=== PATIENT | female | born 1970 | race Caucasian/White ===

== ENCOUNTER 2021-11-21 09:21 | Inpatient (IN) | payer OTHER ==
[~2021-11-21] VITALS: Ht 157.5 cm; Wt 82.6 kg
[~2021-11-21 09:21] MED LIST: ASPIRIN EC81 MG PO; ATORVASTATIN CA20 MG PO; CARVEDILOL3.125 MG PO; HEMOCYTE324 MG PO; LASIX20 MG PO; LISINOPRIL10 MG PO; PROTONIX40 MG PO
[2021-11-21 10:47] LABS: HEMOGLOBIN 11.3 gm/dl (12.3-15.3); RED BLOOD COUNT 5.05 M/UL (4.00-5.10); WHITE BLOOD COUNT 9.8 K/UL (4.5-11.0)
[2021-11-21 11:38] LABS: BUN/CREATININE RATIO 17 (0-10)
[2021-11-21] MEDS ORDERED: ASPIRIN EC81 MG PO (17:57)
[2021-11-21] MEDS ORDERED: ATORVASTATIN CA40 MG PO ×2 (17:58→17:59)
[2021-11-21] MEDS ORDERED: BUSPIRONE HCL7.5 MG PO (18:02)
[2021-11-21] MEDS ORDERED: CARVEDILOL6.25 MG PO (18:03)
[2021-11-21] MEDS ORDERED: FEROSUL325 MG PO (18:04)
[2021-11-21] MEDS ORDERED: FUROSEMIDE20 MG PO (18:05)
[2021-11-21] MEDS ORDERED: HYDRALAZINE HCL10 MG PO (18:07)
[2021-11-21] MEDS ORDERED: ISOSORBIDE MONO30 MG PO (18:08)
[2021-11-21] MEDS ORDERED: LISINOPRIL20 MG PO (18:11)
[2021-11-21] MEDS ORDERED: PROTONIX40 MG PO (18:12)
[2021-11-21] MEDS ORDERED: IBU800 MG PO (18:14)
[2021-11-21] MEDS ORDERED: PROZAC40 MG PO (18:14)
[2021-11-21 19:50] LABS: HEMOGLOBIN 10.7 gm/dl (12.3-15.3); RED BLOOD COUNT 4.77 M/UL (4.00-5.10); WHITE BLOOD COUNT 9.4 K/UL (4.5-11.0)
[2021-11-21 20:13] LABS: BUN/CREATININE RATIO 17 (0-10)
[2021-11-22 05:24] LABS: BUN/CREATININE RATIO 17 (0-10)
[2021-11-22 05:25] LABS: HEMOGLOBIN 11.3 gm/dl (12.3-15.3); RED BLOOD COUNT 5.05 M/UL (4.00-5.10); WHITE BLOOD COUNT 10.3 K/UL (4.5-11.0)
[2021-11-23] MEDS ORDERED: LISINOPRIL20 MG PO (11:20)
[2021-11-23] MEDS ORDERED: BRILINTA 90 MG90 MG PO (11:20)
[2021-11-23] MEDS ORDERED: ATORVASTATIN CA80 MG PO (11:20)
[2021-11-23] MEDS ORDERED: NORVASC5 MG PO (11:20)
[2021-11-23] MEDS ORDERED: HYGROTON TAB 2525 MG PO (11:20)
== END 2021-11-23 14:27 | disposition home or self-care (01) | DRG 247 ==
LOC: ER1 09:21 → CDU 10:20 → CCU 10:20
PROVIDERS: ADMIT Internal Medicine Cardiovascular Disease
PROC: 027034Z Dilation of Coronary Artery, One Artery with Drug-eluting Intraluminal Device, Percutaneous Approach (ICD-10-PCS; 2021-11-21)
PROC: 4A023N7 Measurement of Cardiac Sampling and Pressure, Left Heart, Percutaneous Approach (ICD-10-PCS; 2021-11-21)
PROC: B2111ZZ Fluoroscopy of Multiple Coronary Arteries using Low Osmolar Contrast (ICD-10-PCS; 2021-11-21)
PROC: B240ZZ3 Ultrasonography of Single Coronary Artery, Intravascular (ICD-10-PCS; 2021-11-21)
PROC: B24BZZZ Ultrasonography of Heart with Aorta (ICD-10-PCS; principal; 2021-11-22)
DX: I21.19 ST elevation (STEMI) myocardial infarction involving other coronary artery of inferior wall (principal); E78.5 Hyperlipidemia, unspecified; Z20.822 Contact with and (suspected) exposure to COVID-19; F17.200 Nicotine dependence, unspecified, uncomplicated; K21.9 Gastro-esophageal reflux disease without esophagitis; I51.7 Cardiomegaly; J44.9 Chronic obstructive pulmonary disease, unspecified; I11.0 Hypertensive heart disease with heart failure; I50.9 Heart failure, unspecified; F41.9 Anxiety disorder, unspecified; F32.A Depression, unspecified; Z82.49 Family history of ischemic heart disease and other diseases of the circulatory system; Z98.51 Tubal ligation status; Z90.49 Acquired absence of other specified parts of digestive tract; Z56.0 Unemployment, unspecified; Z79.82 Long term (current) use of aspirin; Z79.899 Other long term (current) drug therapy
CPT/HCPCS: ECHO; 36415; 71045; 80048; 80053; 80061; 85025; 85027; 85347; 92978; 93005; 93306; 96374; 96375; 99152; 99153; 99285; C1725; C1753; C1769; C1874; C1887; C1894; J0461; J1644; J2250; J2270; J2370; J2405; J3010; J7030; J7040; Q9965; U0002